=== PATIENT | male | born 1980 | race Caucasian/White ===

== ENCOUNTER 2017-11-02 11:57 | Emergency (ER) | payer BC ==
--- NOTE | 2017-11-02 14:13 | ER Document Report ---
ED Medical Screen (RME) - General Chief Complaint: Allergic Reaction Stated Complaint: POSSIBLE ALLERGIC REACTION Time Seen by Provider: 11/02/17 14:05 TRAVEL OUTSIDE OF THE [place] IN LAST 30 DAYS: No - Related Data Allergies/Adverse Reactions: erythromycin base Allergy (Verified 11/02/17 11:58) Physical Exam - Vital signs Vitals: Temp Pulse Resp BP Pulse Ox 98.7 F 108 H 18 135/87 H 95 11/02/17 12:30 11/02/17 12:30 11/02/17 12:30 11/02/17 12:30 11/02/17 12:30 Course - Vital Signs Vital signs: Temp Pulse Resp BP Pulse Ox 98.7 F 108 H 18 135/87 H 95 11/02/17 12:30 11/02/17 12:30 11/02/17 12:30 11/02/17 12:30 11/02/17 12:30
--- NOTE | 2017-11-02 14:18 | ER Document Report ---
ED Allergic Reaction - General Chief Complaint: Allergic Reaction Stated Complaint: POSSIBLE ALLERGIC REACTION Time Seen by Provider: 11/02/17 14:05 TRAVEL OUTSIDE OF THE [place] IN LAST 30 DAYS: No - HPI Notes: Patient is a 37-year-old male that presents to the emergency department for chief complaint of bee sting. Patient was stung by a bee this morning on the left side of his face. He has a history of allergic reactions to insect stings in the past. He does have an EpiPen but did not use it. He was given Benadryl and fluids by EMS and states he has significant improvement. He denied any throat swelling or difficulty breathing. He states he felt lightheaded for a few minutes but that has completely resolved. Currently he states he is only having some burning and itching on the left side of his face near the stain. He denies any vision changes. Past Medical History: Reviewed in chart Past Surgical History: [ Reviewed in chart ] Social History: [ Reviewed in chart ] Family History: Reviewed and noncontributory for presenting illness Allergies: Reviewed, see documented allergy list. REVIEW OF SYSTEMS: CONSTITUTIONAL : No fever No chills No diaphoresis No recent illness EENT: No vision changes No congestion No sore throat CARDIOVASCULAR: No chest pain No palpitations RESPIRATORY: No shortness of breath No cough No difficulty breathing GASTROINTESTINAL: No abdominal pain No nausea No vomiting No diarrhea GENITOURINARY: No dysuria No hematuria No difficulty urinating MUSCULOSKELETAL: No back pain No leg pain No arm pain SKIN: rashes Bee sting LYMPHATIC: No swollen, enlarged glands. NEUROLOGICAL: No lightheadedness No headache No weakness No paresthesias PSYCHIATRIC: No anxiety No depression PHYSICAL EXAMINATION: Vital signs reviewed, nursing noted reviewed. GENERAL: Well-appearing, well-nourished and in no acute distress. HEAD: Atraumatic, normocephalic. EYES: Eyes appear normal, extraocular movements intact, sclera anicteric, conjunctiva are normal. ENT: nares patent, oropharynx clear without exudates. Moist mucous membranes. NECK: Normal range of motion, supple without lymphadenopathy LUNGS: Breath sounds clear to auscultation bilaterally and equal. No wheezes rales or rhonchi. HEART: Regular rate and rhythm without murmurs ABDOMEN: Soft, nontender, normoactive bowel sounds. No rebound, guarding, or rigidity. No masses appreciated. EXTREMITIES: Nontender, good range of motion, no pitting or edema. NEUROLOGICAL: No focal neurological deficits. Moves all extremities spontaneously Motor and sensory grossly intact on exam. PSYCH: Normal mood, normal affect. SKIN: Warm, Dry, normal turgor. Erythema to left hinduism with central clearing consistent with insect sting - Related Data Allergies/Adverse Reactions: erythromycin base Allergy (Verified 11/02/17 11:58) Past Medical History - Social History Smoking Status: Never Smoker Family History: Reviewed & Not Pertinent Review of Systems - Review of Systems Notes: Dictated Physical Exam - Vital signs Vitals: Temp Pulse Resp BP Pulse Ox 98.7 F 108 H 18 135/87 H 95 11/02/17 12:30 11/02/17 12:30 11/02/17 12:30 11/02/17 12:30 11/02/17 12:30 - Notes Notes: Dictated Course - Re-evaluation Re-evalutation: 11/02/17 14:15 Vitals reviewed. Nursing notes reviewed. Patient did not require epinephrine and has not had an anaphylactic reaction. He is improved after Benadryl. He will be discharged home in stable condition. He will continue using Benadryl as needed. - Vital Signs Vital signs: Temp Pulse Resp BP Pulse Ox 98.7 F 108 H 18 135/87 H 95 11/02/17 12:30 11/02/17 12:30 11/02/17 12:30 11/02/17 12:30 11/02/17 12:30 Discharge - Discharge Clinical Impression: Insect sting Qualifiers: Encounter type: initial encounter Injury intent: accidental or unintentional Qualified Code(s): T63.481A - Toxic effect of venom of other arthropod, accidental (unintentional), initial encounter Allergic reaction Qualifiers: Encounter type: initial encounter Qualified Code(s): T78.40XA - Allergy, unspecified, initial encounter Condition: Stable Disposition: HOME, SELF-CARE Instructions: Acute Allergic Reaction ([facility]) Additional Instructions: Please return to the emergency department if you have any worsening, or concern of your symptoms. Please return to the emergency department if you develop chest pain, difficulty breathing, severe abdominal pain, or ongoing vomiting. Please follow-up with your primary care physician in 2-3 days and any other recommended physicians. If prescribed, take all medications as directed. If you have any questions or concerns do not hesitate to return the emergency department for evaluation. [Use Benadryl at home as directed on the label for itching and irritation]
[2017-11-02 14:35] VITALS: BP 133/90
== END 2017-11-02 14:26 | disposition home or self-care (01) ==
LOC: ER 11:57
DX: T63.441A Toxic effect of venom of bees, accidental (unintentional), initial encounter (principal); Z88.1 Allergy status to other antibiotic agents
CPT/HCPCS: 99283